=== PATIENT | female | born 1950 | race Caucasian/White ===

== ENCOUNTER 2024-07-23 13:25 | Emergency (ER) | payer OTHER ==
[~2024-07-23] VITALS: Ht 162.6 cm; Wt 68.0 kg
[2024-07-23] MEDS ORDERED: PLAVIX75 MG (14:06)
[2024-07-23] MEDS ORDERED: GLUMETZA500 MG (14:07)
== END 2024-07-23 15:54 | disposition home or self-care (01) ==
LOC: ER 13:26
DX: G43.809 Other migraine, not intractable, without status migrainosus (principal); Q79.8 Other congenital malformations of musculoskeletal system; Z88.0 Allergy status to penicillin; Z88.8 Allergy status to other drugs, medicaments and biological substances